=== PATIENT | male | born 2000 ===

== ENCOUNTER 2025-05-28 12:36 | Outpatient (CLI) | payer BC, SELFPAY ==
[2025-05-31 14:21] LABS: TB Interpretation Negative (Negative); TB1 Ag minus Nil 0.25 IU/mL; TB2 Ag minus Nil 0.17 IU/mL
== END 2025-05-28 12:37 | disposition home or self-care (01) ==
LOC: LBO 12:36
PROVIDERS: Visit Provider Nurse Practitioner Family
DX: R76.12 Nonspecific reaction to cell mediated immunity measurement of gamma interferon antigen response without active tuberculosis (principal)
CPT/HCPCS: 36415; 86480